=== PATIENT | female | born 2000 | race Caucasian/White ===

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

== ENCOUNTER 2018-07-29 07:37 | Emergency (ER) | payer BC ==
[2018-07-29 07:46] VITALS: BP 104/64
--- NOTE | 2018-07-29 08:25 | UC ---
Throat Pain/Nasal Marino HPI - HPI Summary HPI Summary: The patient is 17-year-old female with a 24-hour history of sore throat. She has had mild headache and myalgias. She felt feverish last night. She has had no nausea or vomiting. She had frequent strep throat as a child. - History of Current Complaint Chief Complaint: UCGeneralIllness Stated Complaint: SORE THROAT Time Seen by Provider: 07/29/18 07:51 Hx Obtained From: Patient Hx Last Menstrual Period: on BC, skips her period Onset/Duration: Sudden Onset, Lasting Hours Severity: Moderate Pain Intensity: 5 Pain Scale Used: 0-10 Numeric Cough: None Associated Signs & Symptoms: Positive: Fever - Epiglottits Risk Factors Epiglottis Risk Factors: Negative - Allergies/Home Medications Allergies/Adverse Reactions: Allergies Allergy/AdvReac Type Severity Reaction Status Date / Time clindamycin Allergy Intermediate Rash Verified 07/29/18 07:46 Home Medications: Home Medications Ibuprofen 600 mg PO TID PRN 07/29/18 [History Confirmed 07/29/18] PMH/Surg Hx/FS Hx/Imm Hx Previously Healthy: Yes - Surgical History Surgical History: None Surgery Procedure, Year, and Place: denies - Family History Known Family History: Positive: Hypertension Negative: Cardiac Disease, Diabetes - Social History Alcohol Use: None Substance Use Type: None Smoking Status (MU): Never Smoked Tobacco - Immunization History Most Recent Tetanus Shot: UTD Review of Systems Constitutional: Fever Skin: Negative Eyes: Negative ENT: Sore Throat Respiratory: Negative Cardiovascular: Negative Gastrointestinal: Negative Genitourinary: Negative Motor: Negative Neurovascular: Negative Musculoskeletal: Negative Neurological: Negative Psychological: Negative All Other Systems Reviewed And Are Negative: Yes Physical Exam Triage Information Reviewed: Yes Appearance: Well-Appearing, No Pain Distress, Well-Nourished Vital Signs: Initial Vital Signs Temp 98.4 F 07/29/18 07:42 Pulse 100 07/29/18 07:42 Resp 20 07/29/18 07:42 BP 104/64 07/29/18 07:42 Pulse Ox 100 07/29/18 07:42 Vital Signs Reviewed: Yes Eyes: Positive: Conjunctiva Clear ENT: Positive: Hearing grossly normal. Negative: Nasal congestion, Nasal drainage, Trismus, Muffled voice, Hoarse voice Neck: Positive: Supple, Enlarged Nodes @ - ant cervical Respiratory: Positive: Lungs clear, Normal breath sounds, No respiratory distress, No accessory muscle use Cardiovascular: Positive: RRR, No Murmur Musculoskeletal: Positive: ROM Intact, No Edema Neurological Exam: Normal Neurological: Positive: Alert Psychological: Positive: Normal Response To Family Skin Exam: Normal Diagnostics - Laboratory Diagnostic Studies Completed/Ordered: strep (-) Throat Pain/Nasal Course/Dx - Differential Dx/Diagnosis Provider Diagnoses: strep throat Discharge - Sign-Out/Discharge Documenting (check all that apply): Patient Departure All imaging exams completed and their final reports reviewed: No Studies - Discharge Plan Condition: Stable Disposition: HOME Prescriptions: Amoxicillin PO (*) [Amoxicillin 875 MG (*)] 875 mg PO BID #20 tab Patient Education Materials: Strep Throat (ED) Forms: *School Release, *Work Release Referrals: [facility] - Zachary GOMEZ [Primary Care Provider] - If Needed Additional Instructions: rest fluids tylenol or advil for pain recheck in 3-4 days if not better recheck sooner for new or worsening symptoms - Billing Disposition and Condition Condition: STABLE Disposition: Home
== END 2018-07-29 08:30 | disposition home or self-care (01) ==
LOC: UCEAST 07:37
DX: J02.0 Streptococcal pharyngitis (principal); Z88.3 Allergy status to other anti-infective agents
CPT/HCPCS: 87651; 99212; G0463